=== PATIENT | male | born 1975 ===

== ENCOUNTER 2021-11-26 00:39 | Inpatient (IN) | payer OTHER ==
--- NOTE | 2021-11-26 01:43 | Emergency Department Report ---
ED Altered Mental Status [facility] - General Chief Complaint: Altered Mental Status Stated Complaint: CONFUSION, DT Source: EMS Mode of arrival: Stretcher Limitations: Altered Mental Status - Related Data Allergies Allergy/AdvReac Type Severity Reaction Status Date / Time No Known Allergies Allergy Verified 11/26/21 01:53 ED Review of Systems ROS: Stated complaint: CONFUSION, DT Other details as noted in HPI ED Past Medical Hx - Past Medical History Previous Medical History?: No Additional medical history: unable to obtain - Surgical History Past Surgical History?: No Additional Surgical History: unable to obtain - Social History Smoking Status: Unknown if ever smoked ED Physical Exam - General Limitations: Language Barrier, Altered Mental Status - Head Head exam: Present: atraumatic, normocephalic - Eye Eye exam: Present: normal appearance - ENT ENT exam: Present: mucous membranes moist - Neck Neck exam: Present: normal inspection, full ROM. Absent: tenderness - Respiratory Respiratory exam: Present: normal lung sounds bilaterally. Absent: respiratory distress - Cardiovascular Cardiovascular Exam: Present: tachycardia. Absent: systolic murmur, diastolic murmur - GI/Abdominal GI/Abdominal exam: Present: soft. Absent: distended, tenderness - Rectal Rectal exam: Present: deferred - Extremities Exam Extremities exam: Present: normal inspection, full ROM. Absent: tenderness - Back Exam Back exam: Present: normal inspection, full ROM. Absent: tenderness, CVA tenderness (R), CVA tenderness (L) - Neurological Exam Neurological exam: Present: alert (But confused and appears to be picking things out of the air.) - Psychiatric Psychiatric exam: Present: agitated. Absent: homicidal ideation, suicidal ideation - Skin Skin exam: Present: warm, dry, intact ED Course Vital Signs 11/26/21 11/26/21 11/26/21 01:06 01:09 02:02 Temperature 97.2 F L Pulse Rate 113 H 102 H Respiratory 16 21 Rate Blood Pressure Blood Pressure 114/78 [Left] O2 Sat by Pulse 99 98 97 Oximetry 11/26/21 11/26/21 11/26/21 02:15 02:30 03:17 Temperature Pulse Rate 90 90 103 H Respiratory 26 H 15 26 H Rate Blood Pressure 139/87 139/87 115/79 Blood Pressure [Left] O2 Sat by Pulse 98 98 Oximetry 11/26/21 11/26/21 11/26/21 03:31 03:45 04:01 Temperature Pulse Rate 105 H 82 80 Respiratory 27 H 17 17 Rate Blood Pressure 133/91 133/91 144/75 Blood Pressure [Left] O2 Sat by Pulse 85 98 98 Oximetry 11/26/21 11/26/21 11/26/21 04:15 04:31 04:45 Temperature Pulse Rate 101 H 78 80 Respiratory 26 H 19 15 Rate Blood Pressure 144/75 143/72 143/72 Blood Pressure [Left] O2 Sat by Pulse 98 98 96 Oximetry 11/26/21 11/26/21 05:01 05:15 Temperature Pulse Rate 75 70 Respiratory 20 15 Rate Blood Pressure 139/81 139/81 Blood Pressure [Left] O2 Sat by Pulse 96 97 Oximetry - Lab Data Result diagrams: 11/26/21 02:08 11/26/21 02:08 Lab Results 11/26/21 11/26/21 11/26/21 Range/Units 02:08 02:08 02:08 WBC 7.2 (4.5-11.0) K/mm3 RBC 4.36 (3.65-5.03) M/mm3 Hgb 12.2 (11.8-15.2) gm/dl Hct 37.2 (35.5-45.6) % MCV 85 (84-94) fl MCH 28 (28-32) pg MCHC 33 (32-34) % RDW 16.2 H (13.2-15.2) % Plt Count 110 L (140-440) K/mm3 Lymph % (Auto) 5.7 L (13.4-35.0) % [place] % (Auto) 13.2 H (0.0-7.3) % Eos % (Auto) 0.4 (0.0-4.3) % Baso % (Auto) 0.3 (0.0-1.8) % Lymph # (Auto) 0.4 L (1.2-5.4) K/mm3 [place] # (Auto) 1.0 H (0.0-0.8) K/mm3 Eos # (Auto) 0.0 (0.0-0.4) K/mm3 Baso # (Auto) 0.0 (0.0-0.1) K/mm3 Seg Neutrophils % 80.4 H (40.0-70.0) % Seg Neutrophils # 5.8 (1.8-7.7) K/mm3 Sodium 138 (137-145) mmol/L Potassium 3.7 (3.6-5.0) mmol/L Chloride 99.6 (98-107) mmol/L Carbon Dioxide 24 (22-30) mmol/L Anion Gap 18 mmol/L BUN 8 L (9-20) mg/dL Creatinine 0.6 L (0.8-1.3) mg/dL Estimated GFR > 60 ml/min BUN/Creatinine Ratio 13 % Glucose 101 H (75-100) mg/dL Lactic Acid 0.90 (0.7-2.0) mmol/L Calcium 9.2 (8.4-10.2) mg/dL Total Bilirubin 0.40 (0.1-1.2) mg/dL AST 84 H (5-40) units/L ALT 62 H (7-56) units/L Alkaline Phosphatase 86 (35-129) units/L Total Protein 8.3 H (6.3-8.2) g/dL Albumin 4.3 (3.9-5) g/dL Albumin/Globulin Ratio 1.1 % Plasma/Serum Alcohol (0-0.07) % 11/26/21 Range/Units 06:01 WBC (4.5-11.0) K/mm3 RBC (3.65-5.03) M/mm3 Hgb (11.8-15.2) gm/dl Hct (35.5-45.6) % MCV (84-94) fl MCH (28-32) pg MCHC (32-34) % RDW (13.2-15.2) % Plt Count (140-440) K/mm3 Lymph % (Auto) (13.4-35.0) % [place] % (Auto) (0.0-7.3) % Eos % (Auto) (0.0-4.3) % Baso % (Auto) (0.0-1.8) % Lymph # (Auto) (1.2-5.4) K/mm3 [place] # (Auto) (0.0-0.8) K/mm3 Eos # (Auto) (0.0-0.4) K/mm3 Baso # (Auto) (0.0-0.1) K/mm3 Seg Neutrophils % (40.0-70.0) % Seg Neutrophils # (1.8-7.7) K/mm3 Sodium (137-145) mmol/L Potassium (3.6-5.0) mmol/L Chloride (98-107) mmol/L Carbon Dioxide (22-30) mmol/L Anion Gap mmol/L BUN (9-20) mg/dL Creatinine (0.8-1.3) mg/dL Estimated GFR ml/min BUN/Creatinine Ratio % Glucose (75-100) mg/dL Lactic Acid (0.7-2.0) mmol/L Calcium (8.4-10.2) mg/dL Total Bilirubin (0.1-1.2) mg/dL AST (5-40) units/L ALT (7-56) units/L Alkaline Phosphatase (35-129) units/L Total Protein (6.3-8.2) g/dL Albumin (3.9-5) g/dL Albumin/Globulin Ratio % Plasma/Serum Alcohol < 0.01 (0-0.07) % - Medical Decision Making The patient is in alcohol withdrawal and based on the visual hallucinations the decision was made that he is in delirium tremens. The patient will be admitted to the medical service for further evaluation and treatment. He was given banana bag during his time evaluation in the emergency department. He was also given Ativan and this was followed by Geodon and soft restraints due to dif ficulty in controlling his behavior. I spoke with the hospitalist who agreed to accept the patient for admission Critical Care Time: Yes Critical care time in (mins) excluding proc time.: 25 Critical care attestation.: If time is entered above; I have spent that time in minutes in the direct care of this critically ill patient, excluding procedure time. ED Disposition Clinical Impression: Delirium tremens, Alcohol abuse Disposition: ADMITTED INPATIENT Is pt being admited?: Yes Condition: Fair Referrals: NOAH EATON [Other] - 3-5 Days
[2021-11-26] MEDS ORDERED: LORazepam 2 MG/ML VIAL IV ONE (01:45)
[2021-11-26] MEDS ORDERED: THIAMINE 100 MG, FOLIC ACID 1 MG, MULTIPLE VITAMIN INJ, ADULT 10 ML in SODIUM CHLORIDE ... IV ONE (01:51)
[2021-11-26] MEDS ORDERED: LORazepam 2 MG/ML VIAL ONE (01:53)
[2021-11-26 02:28] LABS: Basophils % (Auto) 0.3 % (0.0-1.8); Eosinophils % (Auto) 0.4 % (0.0-4.3); Hematocrit 37.2 % (35.5-45.6); Hemoglobin 12.2 gm/dl (11.8-15.2); Lymphocytes # (Auto) 0.4 K/mm3 (1.2-5.4); Lymphocytes % (Auto) 5.7 % (13.4-35.0); Mean Corpuscular HGB Conc 33 % (32-34); Mean Corpuscular Volume 85 fl (84-94); Monocytes % (Auto) 13.2 % (0.0-7.3); Platelet Count 110 K/mm3 (140-440); Red Blood Count 4.36 M/mm3 (3.65-5.03); Red Cell Distribution Width 16.2 % (13.2-15.2)
[2021-11-26 02:48] LABS: Alanine Aminotransferase 62 units/L (7-56); Albumin 4.3 g/dL (3.9-5); BUN/Creatinine Ratio 13; Blood Urea Nitrogen 8 mg/dL (9-20); Calcium 9.2 mg/dL (8.4-10.2); Hemolysis Index 68
[2021-11-26] MEDS: ZIPRASIDONE MESYLATE 20 MG VIAL IM PRN ×2 (03:10→08:30)
--- NOTE | 2021-11-26 07:48 | History and Physical Report ---
History of Present Illness Date of examination: 11/26/21 Date of admission: 11/26/21 Chief complaint: Agitation, delirium tremens History of present illness: Patient is a 45-year-old male who was admitted to [facility] for alcohol withdrawal. Longstanding and last alcohol use was on the 28 3 days prior to the admission. Patient has only been on thank you less than 24 hours was noted to have visual and auditory hallucination with severe tremors sent to the hospital for further evaluation. He was recommended for admission following admission of Geodon soft restraints remain difficult to control. He was currently in four-point restraints at the time of my evaluation. During periods of clarity the patient denies any past medical history did state that he takes some vitamins but could not articulate what vitamins he takes and on further questioning he began to speak in sabianist language and became increasingly agitated. Initial laboratory findings shows thrombocytopenia mild elevation in AST and ALT.no imaging studies available at this time. Medications and Allergies Allergies Allergy/AdvReac Type Severity Reaction Status Date / Time No Known Allergies Allergy Verified 11/26/21 01:53 Active Meds: Active Medications Acetaminophen (Acetaminophen 325 Mg Tab) 650 mg PO Q4H PRN PRN Reason: Pain MILD(1-3)/Fever >100.5/CHAVEZ Albuterol (Albuterol 2.5 Mg/3 Ml Nebu) 2.5 mg IH Q4HRT PRN PRN Reason: Shortness Of Breath Famotidine (Famotidine 20 Mg/2 Ml Inj) 20 mg IV BID ELVIA Haloperidol Lactate (Haloperidol Lactate 5 Mg/1 Ml Inj) 5 mg IV Q1H PRN PRN Reason: Unrespon. to mult. doses BZD's Lorazepam (Lorazepam 2 Mg/Ml Vial) 2 mg IV Q1H PRN PRN Reason: CIWA-Ar 8-15 Lorazepam (Lorazepam 2 Mg/Ml Vial) 4 mg IV Q1H PRN PRN Reason: CIWA-Ar 16-25 Lorazepam (Lorazepam 2 Mg/Ml Vial) 4 mg IV Q15MIN PRN PRN Reason: CIWA-Ar >25 Metoclopramide HCl (Metoclopramide 10 Mg/2 Ml Inj) 10 mg IV Q6H PRN PRN Reason: Nausea And Vomiting Naloxone HCl (Naloxone 0.4 Mg/1 Ml Inj) 0.1 mg IV Q2MIN PRN PRN Reason: Res Rate </= 8 or 02 SAT < 92% Ondansetron HCl (Ondansetron 4 Mg/2 Ml Inj) 4 mg IV Q8H PRN PRN Reason: Nausea And Vomiting Oxycodone/Acetaminophen (Oxycodone /Acetaminophen 5-325mg Tab) 1 tab PO Q6H PRN PRN Reason: Pain, Moderate (4-6) Sodium Chloride (Sodium Chloride 0.9% 10 Ml Flush Syringe) 10 ml IV BID ELVIA Sodium Chloride (Sodium Chloride 0.9% 10 Ml Flush Syringe) 10 ml IV PRN PRN PRN Reason: LINE FLUSH Ziprasidone (Ziprasidone Mesylate 20 Mg Vial) 10 mg IM Q2H PRN PRN Reason: Agitation Last Admin: 11/26/21 03:10 Dose: 10 mg Review of Systems ROS unobtainable: due to mental status Cardiovascular: no chest pain Respiratory: no shortness of breath, no dyspnea on exertion Exam - Physical Exam Narrative exam: VITAL SIGNS: Reviewed. GENERAL: The patient appears normally developed, cachectic vital signs as documented. HEAD: No signs of head trauma. EYES: Pupils are equal. Extraocular motions intact. EARS: Hearing grossly intact. MOUTH: Oropharynx is normal. NECK: No adenopathy, no JVD. CHEST: Chest with clear breath sounds bilaterally. No wheezes, rales, or rh onchi. CARDIAC: Regular rate and rhythm. S1 and S2, without murmurs, gallops, or rubs. VASCULAR: No Edema. Peripheral pulses normal and equal in all extremities. ABDOMEN: Soft, non tender and non distended. No rebound or guarding, and no masses palpated. Bowel Sounds normal. MUSCULOSKELETAL: Good range of motion of all major joints. Extremities without clubbing, cyanosis or edema. NEUROLOGIC EXAM: Disoriented no focal sensory or strength deficits. Speech normal. On four-point restraints no following commands PSYCHIATRIC: Mood agitated SKIN: detail exam as documented in skin assessment - Constitutional Vitals: Temp Pulse Resp BP Pulse Ox 97.2 F L 72 18 149/84 99 11/26/21 01:06 11/26/21 07:46 11/26/21 07:31 11/26/21 07:31 11/26/21 07:31 Results - Labs CBC & Chem 7: 11/26/21 02:08 11/26/21 02:08 Labs: Laboratory Last Values WBC 7.2 K/mm3 (4.5-11.0) 11/26/21 02:08 RBC 4.36 M/mm3 (3.65-5.03) 11/26/21 02:08 Hgb 12.2 gm/dl (11.8-15.2) 11/26/21 02:08 Hct 37.2 % (35.5-45.6) 11/26/21 02:08 MCV 85 fl (84-94) 11/26/21 02:08 MCH 28 pg (28-32) 11/26/21 02:08 MCHC 33 % (32-34) 11/26/21 02:08 RDW 16.2 % (13.2-15.2) H 11/26/21 02:08 Plt Count 110 K/mm3 (140-440) L 11/26/21 02:08 Lymph % (Auto) 5.7 % (13.4-35.0) L 11/26/21 02:08 [place] % (Auto) 13.2 % (0.0-7.3) H 11/26/21 02:08 Eos % (Auto) 0.4 % (0.0-4.3) 11/26/21 02:08 Baso % (Auto) 0.3 % (0.0-1.8) 11/26/21 02:08 Lymph # (Auto) 0.4 K/mm3 (1.2-5.4) L 11/26/21 02:08 [place] # (Auto) 1.0 K/mm3 (0.0-0.8) H 11/26/21 02:08 Eos # (Auto) 0.0 K/mm3 (0.0-0.4) 11/26/21 02:08 Baso # (Auto) 0.0 K/mm3 (0.0-0.1) 11/26/21 02:08 Seg Neutrophils % 80.4 % (40.0-70.0) H 11/26/21 02:08 Seg Neutrophils # 5.8 K/mm3 (1.8-7.7) 11/26/21 02:08 Sodium 138 mmol/L (137-145) 11/26/21 02:08 Potassium 3.7 mmol/L (3.6-5.0) 11/26/21 02:08 Chloride 99.6 mmol/L (98-107) 11/26/21 02:08 Carbon Dioxide 24 mmol/L (22-30) 11/26/21 02:08 Anion Gap 18 mmol/L 11/26/21 02:08 BUN 8 mg/dL (9-20) L 11/26/21 02:08 Creatinine 0.6 mg/dL (0.8-1.3) L 11/26/21 02:08 Estimated GFR > 60 ml/min 11/26/21 02:08 BUN/Creatinine Ratio 13 % 11/26/21 02:08 Glucose 101 mg/dL (75-100) H 11/26/21 02:08 Lactic Acid 0.90 mmol/L (0.7-2.0) 11/26/21 02:08 Calcium 9.2 mg/dL (8.4-10.2) 11/26/21 02:08 Total Bilirubin 0.40 mg/dL (0.1-1.2) 11/26/21 02:08 AST 84 units/L (5-40) H 11/26/21 02:08 ALT 62 units/L (7-56) H 11/26/21 02:08 Alkaline Phosphatase 86 units/L (35-129) 11/26/21 02:08 Total Protein 8.3 g/dL (6.3-8.2) H 11/26/21 02:08 Albumin 4.3 g/dL (3.9-5) 11/26/21 02:08 Albumin/Globulin Ratio 1.1 % 11/26/21 02:08 Plasma/Serum Alcohol < 0.01 % (0-0.07) 11/26/21 06:01 Assessment and Plan Assessment and plan: Patient is a 45-year-old male who was admitted to [facility] for alcohol withdrawal. Longstanding and last alcohol use was on the 28 3 days prior to the admission. Patient has only been on thank you less than 24 hours was noted to have visual and auditory hallucination with severe tremors sent to the hospital for further evaluation. He was recommended for admission following admission of Geodon soft restraints remain difficult to control. He was currently in four-point restraints at the time of my evaluation. During periods of clarity the patient denies any past medical history did state that he takes some vitamins but could not articulate what vitamins he takes and on further questioning he began to speak in sabianist language and became increasingly agita sarina. Initial laboratory findings shows thrombocytopenia mild elevation in AST and ALT.no imaging studies available at this time. Delirium tremens Alcohol use disorder Thrombocytopenia Systemic inflammatory response syndrome Mildly elevated transaminases Acute metabolic encephalopathy likely secondary to alcohol withdrawal Acute psychosis [place] patient Plan Admit to [facility] Continue restraints for patient safety, -two points CILA Protocol As needed medication for blood pressure control Check EKG, MAG AND PHOS LEVELS Counselling when more lucid Head CT Aspiration precautions Psych Consult Seizure precautions Banana bag The high probability of a clinically significant, sudden or life threatening deterioration of the [NEURO] system(s) required my full and direct attention, intervention and personal management. The aggregate critical care time was [90] minutes. This time is in addition to time spent performing reported procedures but includes the following: [X] Data Review and interpretation [X] Patient assessment and monitoring of vital signs [X] Documentation [X] Medication orders and management Advance Directives: Yes Plan of care discussed with patient/family: Yes
[2021-11-26] MEDS ORDERED: METOCLOPRAMIDE 10 MG/2 ML INJ IV PRN (08:00)
[2021-11-26] MEDS ORDERED: oxyCODONE /ACETAMINOPHEN 5-325MG TAB PO PRN (08:00)
[2021-11-26] MEDS ORDERED: LORazepam 2 MG/ML VIAL IV PRN ×3 (08:00)
[2021-11-26] MEDS ORDERED: ALBUTEROL 2.5 MG/3 ML NEBU IH PRN (08:00)
[2021-11-26] MEDS ORDERED: ONDANSETRON 4 MG/2 ML INJ IV PRN (08:00)
[2021-11-26] MEDS ORDERED: ACETAMINOPHEN 325 MG TAB PO PRN (08:00)
[2021-11-26] MEDS ORDERED: HALOPERIDOL LACTATE 5 MG/1 ML INJ IV PRN (08:00)
[2021-11-26] MEDS ORDERED: NALOXONE 0.4 MG/1 ML INJ IV PRN (08:00)
--- NOTE | 2021-11-26 09:07 | Cat Scan Report ---
CT HEAD WITHOUT CONTRAST INDICATION / CLINICAL INFORMATION: AMS. TECHNIQUE: Axial imaging performed from the skull apex through the skull base without the use of cont rast. Sagittal and coronal reformatted images. All CT scans at this location are performed using CT dose reduction for ALARA by means of automated exposure control. COMPARISON: None available. FINDINGS: CEREBRAL PARENCHYMA: Mild cortical volume loss is suspected for this person's age. No acute parenchym al abnormality is appreciated. No chronic infarct or significant chronic white matter changes. HEMORRHAGE: None. EXTRA-AXIAL SPACES: Normal in size and morphology for the patient's age. VENTRICULAR SYSTEM: Normal in size and morphology for the patient's age. MIDLINE SHIFT OR HERNIATION: None. CEREBELLUM / BRAINSTEM: No significant abnormality. CALVARIUM: No significant abnormality. ORBITS: Bilateral myopia is noted. Retro-orbital contents are unremarkable. PARANASAL SINUSES / MASTOID AIR CELLS: Normal as visualized. SOFT TISSUES of HEAD: No significant abnormality. ADDITIONAL FINDINGS: None. IMPRESSION: No acute intracranial abnormality. Mild cortical volume loss is suspected for this patient's age. Signer Name: John Mello Jr, MD Signed: 11/26/2021 9:02 AM Workstation Name: [id number]
[2021-11-26] MEDS: FAMOTIDINE 20 MG/2 ML INJ IV SCH ×2 (09:41→22:08)
[2021-11-26 10:53] LABS: Bilirubin,Urine NEG (Negative); Blood,Urine NEG (Negative); Color,Urine Yellow (Yellow); Protein,Urine <15 mg/dL mg/dL (Negative); RBC,Urine < 1.0 /HPF (0.0-6.0); Urobilinogen,Urine < 2.0 mg/dL (<2.0); WBC,Urine < 1.0 /HPF (0.0-6.0)
[2021-11-26] MEDS: THIAMINE 100 MG, FOLIC ACID 1 MG, MULTIPLE VITAMIN INJ, ADULT 10 ML in SODIUM CHLORIDE ... IV SCH (14:55)
[2021-11-27 05:18] LABS: Basophils % (Auto) 0.4 % (0.0-1.8); Eosinophils # (Auto) 0.2 K/mm3 (0.0-0.4); Eosinophils % (Auto) 3.7 % (0.0-4.3); Hematocrit 40.1 % (35.5-45.6); Hemoglobin 12.8 gm/dl (11.8-15.2); Lymphocytes # (Auto) 0.6 K/mm3 (1.2-5.4); Lymphocytes % (Auto) 11.6 % (13.4-35.0); Mean Corpuscular HGB Conc 32 % (32-34); Mean Corpuscular Volume 87 fl (84-94); Monocytes # (Auto) 0.7 K/mm3 (0.0-0.8); Platelet Count 123 K/mm3 (140-440); Red Cell Distribution Width 16.2 % (13.2-15.2)
[2021-11-27 05:43] LABS: Alanine Aminotransferase 66 units/L (7-56); Albumin 3.9 g/dL (3.9-5); Blood Urea Nitrogen 7 mg/dL (9-20); Calcium 9.1 mg/dL (8.4-10.2); Hemolysis Index 2
[2021-11-27 05:50] LABS: BUN/Creatinine Ratio 12
--- NOTE | 2021-11-27 08:07 | Progress Note ---
Assessment and Plan Assessment and plan: #Acute metabolic encephalopathy likely secondary to alcohol withdrawal-resolved #Alcohol dependence -CT head for acute findings -patient without hallucinations -Continue [facility] protocol -Librium 10 mg 3 times daily started for symptom control #Thrombocytopenia -likely secondary to chronic alcohol abuse -will continue to monitor #Mildly elevated transaminases -secondary to alcohol abuse -will monitor for improvement with CMP #Advanced care planning -Disease education conducted, care plan discussed, diagnoses discussed, prognosis discussed, and patient acknowledges understanding with care plan -Time: +30 min History Interval history: No acute events overnight. Patient alert and oriented x3. Reports last drink over a week ago. Interested in EtOH cessation. Denies SI/HI, auditory/visual/tactile hallucinations. Fine tremor of left hand resolved. He has no complaints at this time. Hospitalist Physical - Physical exam Narrative exam: GENERAL: Thin male. In no acute distress. HEENT: Normocephalic. Atraumatic. NECK: Supple. CHEST/LUNGS: CTAB on room air HEART/CARDIOVASCULAR: RRR. No murmur, rubs or gallops appreciated. ABDOMEN: +BS. NT/ND. SKIN: No rashes noted. NEURO: No focal motor deficit. Follows all commands. MUSCULOSKELETAL: No joint effusion EXTREMITIES: No cyanosis, clubbing or edema. PSYCH: Cooperative. - Constitutional Vitals: Temp Pulse Resp BP Pulse Ox 98.5 F 93 H 18 111/77 100 11/26/21 21:34 11/26/21 22:00 11/26/21 21:34 11/26/21 21:34 11/27/21 07:49 Results - Labs CBC & Chem 7: 11/27/21 05:05 11/27/21 05:05 Labs: Laboratory Last Values WBC 5.2 K/mm3 (4.5-11.0) 11/27/21 05:05 RBC 4.60 M/mm3 (3.65-5.03) 11/27/21 05:05 Hgb 12.8 gm/dl (11.8-15.2) 11/27/21 05:05 Hct 40.1 % (35.5-45.6) 11/27/21 05:05 MCV 87 fl (84-94) 11/27/21 05:05 MCH 28 pg (28-32) 11/27/21 05:05 MCHC 32 % (32-34) 11/27/21 05:05 RDW 16.2 % (13.2-15.2) H 11/27/21 05:05 Plt Count 123 K/mm3 (140-440) L 11/27/21 05:05 Lymph % (Auto) 11.6 % (13.4-35.0) L 11/27/21 05:05 [place] % (Auto) 13.0 % (0.0-7.3) H 11/27/21 05:05 Eos % (Auto) 3.7 % (0.0-4.3) 11/27/21 05:05 Baso % (Auto) 0.4 % (0.0-1.8) 11/27/21 05:05 Lymph # (Auto) 0.6 K/mm3 (1.2-5.4) L 11/27/21 05:05 [place] # (Auto) 0.7 K/mm3 (0.0-0.8) 11/27/21 05:05 Eos # (Auto) 0.2 K/mm3 (0.0-0.4) 11/27/21 05:05 Baso # (Auto) 0.0 K/mm3 (0.0-0.1) 11/27/21 05:05 Seg Neutrophils % 71.3 % (40.0-70.0) H 11/27/21 05:05 Seg Neutrophils # 3.7 K/mm3 (1.8-7.7) 11/27/21 05:05 Sodium 140 mmol/L (137-145) 11/27/21 05:05 Potassium 3.4 mmol/L (3.6-5.0) L 11/27/21 05:05 Chloride 105.6 mmol/L (98-107) 11/27/21 05:05 Carbon Dioxide 22 mmol/L (22-30) 11/27/21 05:05 Anion Gap 16 mmol/L 11/27/21 05:05 BUN 7 mg/dL (9-20) L 11/27/21 05:05 Creatinine 0.6 mg/dL (0.8-1.3) L 11/27/21 05:05 Estimated GFR > 60 ml/min 11/27/21 05:05 BUN/Creatinine Ratio 12 % 11/27/21 05:05 Glucose 93 mg/dL (75-100) 11/27/21 05:05 Lactic Acid 0.90 mmol/L (0.7-2.0) 11/26/21 02:08 Calcium 9.1 mg/dL (8.4-10.2) 11/27/21 05:05 Phosphorus 3.10 mg/dL (2.5-4.5) 11/26/21 09:48 Magnesium 1.90 mg/dL (1.7-2.3) 11/26/21 09:48 Total Bilirubin 0.40 mg/dL (0.1-1.2) 11/27/21 05:05 AST 80 units/L (5-40) H 11/27/21 05:05 ALT 66 units/L (7-56) H 11/27/21 05:05 Alkaline Phosphatase 80 units/L (35-129) 11/27/21 05:05 Ammonia 24.0 umol/L (25-60) L 11/26/21 09:48 Total Protein 7.3 g/dL (6.3-8.2) 11/27/21 05:05 Albumin 3.9 g/dL (3.9-5) 11/27/21 05:05 Albumin/Globulin Ratio 1.1 % 11/27/21 05:05 Lipase 39 units/L (13-60) 11/26/21 09:48 TSH 1.970 mlU/mL (0.270-4.200) 11/26/21 09:48 Free T4 1.35 ng/dL (0.76-1.46) 11/26/21 09:48 Urine Color Yellow (Yellow) 11/26/21 09:07 Urine Turbidity Clear (Clear) 11/26/21 09:07 Urine pH 8.0 (5.0-7.0) H 11/26/21 09:07 Ur Specific [place] 1.010 (1.003-1.030) 11/26/21 09:07 Urine Protein <15 mg/dl mg/dL (Negative) 11/26/21 09:07 Urine Glucose (UA) Neg mg/dL (Negative) 11/26/21 09:07 Urine Ketones Neg mg/dL (Negative) 11/26/21 09:07 Urine Blood Neg (Negative) 11/26/21 09:07 Urine Nitrite Neg (Negative) 11/26/21 09:07 Urine Bilirubin Neg (Negative) 11/26/21 09:07 Urine Urobilinogen < 2.0 mg/dL (<2.0) 11/26/21 09:07 Ur Leukocyte Esterase Neg (Negative) 11/26/21 09:07 Urine WBC (Auto) < 1.0 /HPF (0.0-6.0) 11/26/21 09:07 Urine RBC (Auto) < 1.0 /HPF (0.0-6.0) 11/26/21 09:07 Plasma/Serum Alcohol < 0.01 % (0-0.07) 11/26/21 06:01 [place]/IV: Voiding Method Toilet Active Medications - Current Medications Current Medications: Generic Name Dose Route Start Last Admin Trade Name Freq PRN Reason Stop Dose Admin Acetaminophen 650 mg 11/26/21 08:00 Acetaminophen 325 Mg Tab PO Q4H PRN Pain MILD(1-3)/Fever >100.5/CHAVEZ Albuterol 2.5 mg 11/26/21 08:00 Albuterol 2.5 Mg/3 Ml Nebu IH Q4HRT PRN Shortness Of Breath Famotidine 20 mg 11/26/21 10:00 11/26/21 22:08 Famotidine 20 Mg/2 Ml Inj IV 20 mg BID ELVIA Administration Haloperidol Lactate 5 mg 11/26/21 08:00 Haloperidol Lactate 5 Mg/1 Ml Inj IV Q1H PRN Unrespon. to mult. doses BZD's Thiamine HCl 100 mg/ Folic 1,011.2 mls @ 250 mls/hr 11/26/21 10:30 11/26/21 14:55 Acid 1 mg/ Multivitamins/ IV 11/28/21 14:03 250 mls/hr Minerals 10 ml/ Sodium QDAY ELVIA Administration Chloride Lorazepam 2 mg 11/26/21 08:00 Lorazepam 2 Mg/Ml Vial IV Q1H PRN CIWA-Ar 8-15 Lorazepam 4 mg 11/26/21 08:00 11/26/21 09:17 Lorazepam 2 Mg/Ml Vial IV 4 mg Q1H PRN Administration CIWA-Ar 16-25 Lorazepam 4 mg 11/26/21 08:00 Lorazepam 2 Mg/Ml Vial IV Q15MIN PRN CIWA-Ar >25 Metoclopramide HCl 10 mg 11/26/21 08:00 Metoclopramide 10 Mg/2 Ml Inj IV Q6H PRN Nausea And Vomiting Naloxone HCl 0.1 mg 11/26/21 08:00 Naloxone 0.4 Mg/1 Ml Inj IV Q2MIN PRN Res Rate </= 8 or 02 SAT < 92% Ondansetron HCl 4 mg 11/26/21 08:00 Ondansetron 4 Mg/2 Ml Inj IV Q8H PRN Nausea And Vomiting Oxycodone/Acetaminophen 1 tab 11/26/21 08:00 Oxycodone /Acetaminophen 5-325mg Tab PO Q6H PRN Pain, Moderate (4-6) Sodium Chloride 10 ml 11/26/21 10:00 11/26/21 22:08 Sodium Chloride 0.9% 10 Ml Flush Syringe IV 10 ml BID ELVIA Administration Sodium Chloride 10 ml 11/26/21 08:00 Sodium Chloride 0.9% 10 Ml Flush Syringe IV PRN PRN LINE FLUSH Ziprasidone 10 mg 11/26/21 02:39 11/26/21 08:30 Ziprasidone Mesylate 20 Mg Vial IM 10 mg Q2H PRN Administration Agitation Nutrition/Malnutrition Assess - Dietary Evaluation Nutrition/Malnutrition Findings: Nutrition Notes Start: 11/26/21 12:30 Freq: Status: Active Protocol: Document 11/26/21 12:30 JACKLYN (Rec: 11/26/21 12:57 JACKLYN [email or web address]) Nutrition Notes 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 Current Diet Regular Diet (since L 11/26). Labs/Tests 11/26: BUN 8, Crea 0.6, Glu 101. Pertinent Medications 11/26: Multivitamins, others nutritionally unremarkable. Height 5 ft 5.16 in Weight 54.4 kg [place] Body Weight (kg) 62.25 BMI 19.8 Intake Prior to Admission Good Weight change and time frame Pt states being unsure if loss body weight recently. Oscar on chart is 54 ft 5.16 in, I spoke with RN for correction; I assumed the correct one, will verify at F/ U. Weight Status Appropriate Subjective/Other Information RD consult for risk of malnutrition assessment. No reports available on Pt's PO intake of meals at the time , will assess at F/U. Oscar on chart is 54 ft 5.16 in, I spoke with RN -over the phone- for correction; I assumed the correct one, will verify at F/U. Pt on restrains for protection . Pt shows no signs of concern for risk of malnutrition at the time, according to Physical Assessment History notes. Percent of energy/protein needs met: Prescribed Regular Diet provides for energy/protein needs (2,289 Kcal/89 g) during LOS. Burn Absent Trauma Absent GI Symptoms None Food Allergy No Skin Integrity/Comment Assessment WNL. Minimum of two criteria No #1 Nutrition Diagnosis No nutrition diagnosis at this time Comments: Will assess PO intake of meals , and verify updated Oscar at F/U. Is patient on ventilator? No Is Patient Ambulatory and/or Out of Bed Yes REE-([facility]-ambulatory/OOB) [ [id number] [id number]] Calculation Used for Recommendations [facility] Additional Notes Protein: 0.8-1 g/Kg IBW; 50-62 g/day. Fluids: 1 ml/Kcal, or as per MD. Nutrition Intervention Follow-Up By: 11/30/21 Additional Comments Continue monitoring food tolerance, %PO intake of meals , and BM.
[2021-11-27] MEDS: FAMOTIDINE 20 MG/2 ML INJ IV SCH ×2 (09:20→21:24)
[2021-11-27] MEDS: THIAMINE 100 MG, FOLIC ACID 1 MG, MULTIPLE VITAMIN INJ, ADULT 10 ML in SODIUM CHLORIDE ... IV SCH (10:02)
[2021-11-28 05:48] LABS: Alanine Aminotransferase 57 units/L (7-56); Albumin 4.1 g/dL (3.9-5); Blood Urea Nitrogen 7 mg/dL (9-20); Calcium 8.9 mg/dL (8.4-10.2); Hemolysis Index 26
[2021-11-28 05:49] LABS: BUN/Creatinine Ratio 12
[2021-11-28] MEDS: FAMOTIDINE 20 MG/2 ML INJ IV SCH (10:03)
[2021-11-28] MEDS: THIAMINE 100 MG, FOLIC ACID 1 MG, MULTIPLE VITAMIN INJ, ADULT 10 ML in SODIUM CHLORIDE ... IV SCH (10:03)
--- NOTE | 2021-11-28 12:37 | Discharge Summary ---
Providers - Providers Date of Admission: 11/26/21 07:38 Date of discharge: 11/28/21 Attending physician: NUBIA ARIAS 11/26/21 Consult to Case Management [CONS] Routine Services Needed at Discharge: Sales Driver Notified:: NO 11/26/21 07:37 Consult to Physician [CONS] Routine Comment: Consulting Provider: DENY GLASS Physician Instructions: Reason For Exam: PSYCHOSIS 11/27/21 07:21 Consult to Mental Health [CONS] Routine Reason For Exam: psychosis Primary care physician: dr arana. Hospitalization Condition: Fair Pertinent studies: CT scan head unremarkable. Hospital course: Patient presented with evidence of alcohol withdrawal. Patient has not drink in several days and begin to have tremors, tachycardia, encephalopathy was admitted had head CT which was unremarkable. Patient placed on CIWA protocol and did well. Patient had no new events after 48 hours hospital stay. Patient was hydrated. Given appropriate vitamins thiamine folic acid. Patient was educated extensively about alcohol cessation in place he can go to seek help. Disposition: 01 HOME / SELF CARE / HOMELESS Final Discharge Diagnosis (Prints w/discharge instructions): Alcohol withdrawal Core Measure Documentation - Palliative Care Palliative Care/ Comfort Measures: Not Applicable - Core Measures Any of the following diagnoses?: none Exam - Constitutional Vitals: Temp Pulse Resp BP Pulse Ox 98.4 F 68 17 142/87 100 11/28/21 03:59 11/28/21 03:59 11/28/21 03:59 11/28/21 03:59 11/28/21 07:00 General appearance: Present: no acute distress, well-nourished - EENT Eyes: Present: PERRL ENT: hearing intact, clear oral mucosa - Neck Neck: Present: supple, normal ROM - Respiratory Respiratory effort: normal Respiratory: bilateral: CTA - Cardiovascular Heart Sounds: Present: S1 & S2. Absent: rub, click - Extremities Extremities: pulses symmetrical, No edema Peripheral Pulses: within normal limits - Abdominal General gastrointestinal: Present: soft, non-tender, non-distended, normal bowel sounds Male genitourinary: Present: normal - Integumentary Integumentary: Present: clear, warm, dry - Musculoskeletal Musculoskeletal: gait normal, strength equal bilaterally - Psychiatric Psychiatric: appropriate mood/affect, intact judgment & insight - Neurologic Neurologic: CNII-XII intact, moves all extremities Plan Activity: no restrictions, other (No drinking at all cost) Diet: regular Special Instructions: other (Follow-up with alcoholics anonymous) Follow up with: NOAH EATON [Other] - 3-5 Days Prescriptions: chlordiazePOXIDE [Librium] 10 mg PO Q8H #20 capsule Multivitamin Tab [Multiple Vitamin TAB (Theragran)] 1 each PO QDAY #30 tablet Thiamine [Vitamin B-1] 100 mg PO QDAY #30 tablet
[2021-11-28 12:41] VITALS: BP 137/84
[2021-11-28] MEDS ORDERED: MULTIVITAMINS ,THERAPEUTIC TAB PO SCH (13:00)
[2021-11-28] MEDS ORDERED: FOLIC ACID 1 MG TAB PO SCH (14:00)
[2021-11-28] MEDS ORDERED: THIAMINE 100 MG TAB PO SCH (14:00)
== END 2021-11-28 14:43 | disposition home or self-care (01) | DRG 896 ==
LOC: ED 00:39 → 3A 07:38
PROVIDERS: ADMIT Internal Medicine; ATTEND Internal Medicine
DX: F10.231 Alcohol dependence with withdrawal delirium (principal); G93.41 Metabolic encephalopathy; R65.10 Systemic inflammatory response syndrome (SIRS) of non-infectious origin without acute organ dysfunction; D69.6 Thrombocytopenia, unspecified
CPT/HCPCS: 36415; 70450; 80053; 80320; 81001; 82140; 83690; 83735; 84100; 84439; 84443; 85025; G0378; J3490; Q0162; G0480; J2060; J3411; J3486; J7030